=== PATIENT | female | born 1970 | race Caucasian/White ===

== ENCOUNTER 2024-01-31 12:40 | Outpatient (CLI) | payer OTHER, SELFPAY ==
--- NOTE | 2024-01-31 13:00 | MR_ITS ---
[facility] [address] [facility] [address] Phone:?[phone] Fax:?[phone] Referring Physician Information: Shawna Olson [address] [facility] [address] Phone:?[phone] Fax:?[phone] Patient:Danika Okeefe D.O.B:?1970 Sex:?Female Phone:?[phone] [facility] MRN:?[id number] Exam Date:?01/31/2024 EXAM: MRI EXAMINATION OF THE LEFT WRIST WITHOUT CONTRAST CLINICAL INFORMATION: Female, 53 years old, with left wrist pain with use, intermittent numbness in the wrist and fingers. History of fall injury. INDICATION: Wrist pain after fall July 2023. PRIOR SURGERY: None reported. PLAIN FILMS: Wrist radiographs 10/08/2023 COMPARISONS: No prior MRIs available. TECHNICAL INFORMATION: Using a 1.5T MR scanner and a localizing surface coil: coronals: T1, T2, PDFS sagittals: PDFS axials: PD, T2 SEDATION: None CONTRAST: None FINDINGS: Bones and joints: No stress/occult fracture. There is grade III/IV chondral thinning of the thumb CMC articulation with associated mild marrow edema and cystic change in the base of the metacarpal and trapezium. Mild osteophytic spurring and mild lateral subluxation of the metacarpal bases in relation to the trapezium. Triangular fibrocartilage: The triangular fibrocartilage proper, distal dorsal and volar radioulnar ligaments are intact. The peripheral foveal and ulnar styloid attachments are somewhat thickened and heterogeneous suggesting degeneration and chronic sprain injury. Ligaments: No evidence for scapholunate or lunotriquetral interosseous ligament disruption. Interosseous distances between the scaphoid, lunate and triquetrum appear uniform and normal. Alignment:?Type I lunate. 3.8 mm ulnar negative variance. Tendons: The flexor tendons are normal in caliber and signal intensity throughout their course including within the carpal tunnel. There is medial positioning of the extensor carpi ulnaris tendon in relation to the ulnar groove, with adjacent cystic change and marrow edema in the ulnar styloid at this location. Mild thickening and tendinosis without tear or distal disruption. The tendons within the 1st-5th extensor compartments are intact. No significant tendinopathy, and without tenosynovitis, tendon split or tendon disruption. Neurovascular structures: The median nerve appears normal in caliber and signal intensity throughout its course including within the carpal tunnel. The ulnar nerve is intact and normal in appearance. No evidence for intrinsic/extrinsic mass within Guyon's canal. Soft tissues: Mild dorsal wrist synovitis and synovial thickening. IMPRESSION: 1. No stress/occult fracture. 2. 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 3. Medial positioning of the extensor carpi ulnaris tendon in relation to the ulnar groove may reflect ECU subsheath injury. Adjacent small region of cystic change in the distal ulna and mild ECU tendinosis without tear. Remaining flexor and extensor tendons are intact. 4. Degeneration and chronic sprain injury of the peripheral foveal and ulnar side attachments of the TFCC. However, the TFCC disc proper as well as volar and dorsal radioulnar ligaments appear intact. 5. Intact scapholunate and lunotriquetral ligament. 6. Mild dorsal wrist synovitis. 7. Moderate ulnar negative variance. No evidence for bony remodeling or marrow changes involving the DRUJ to suggest changes of ulnar impingement. Electronically signed on 02/01/2024 12:44:00 PM by Sherine Mcclure M.D.
== END 2024-01-31 12:41 | disposition home or self-care (01) ==
LOC: MRI 12:41
PROVIDERS: Visit Provider Physician Assistant
DX: M25.532 Pain in left wrist (principal); M18.12 Unilateral primary osteoarthritis of first carpometacarpal joint, left hand; S63.502A Unspecified sprain of left wrist, initial encounter; M65.88 Other synovitis and tenosynovitis, other site
CPT/HCPCS: 73221